=== PATIENT | male | born 1995 | race Caucasian/White ===

== ENCOUNTER 2020-12-14 23:02 | Inpatient (IN) ==
[2020-12-15] MEDS ORDERED: Naloxone 0.4 MG/ML INJ IVP PRN (01:35)
[2020-12-15] MEDS ORDERED: ALPRAZolam 0.5 MG TABLET PO PRN (01:48)
[2020-12-15 05:58] LABS: Basophils % 0.3 %; Hematocrit 47.6 % (37.5-50.1); Hemoglobin 15.8 g/dL (12.9-16.9); Immature Granulocytes % 0.8 % (0-4); Lymphocytes # 0.5 K/mcL (0.6-4.6); Lymphocytes % 6.5 %; Mean Corpuscular HGB Conc 33.2 g/dL (31.6-35.5); Mean Corpuscular Hemoglobin 28.9 pg (28.0-33.3); Mean Platelet Volume 9.5 fL (9.4-12.4); Monocytes # 0.4 K/mcL (0.0-1.3); Monocytes % 5.1 %; Neutrophils # 6.7 K/mcL (1.6-8.9); Platelet Count 271 K/mcL (140-400); Red Blood Count 5.47 M/mcL (4.19-5.50); Red Cell Distribution Width 12.2 % (11.5-14.5); Segmented Neutrophils % 87.3 %; White Blood Count 7.7 K/mcL (4.3-11.1)
[2020-12-15 06:11] LABS: INR 1.4; Prothrombin Time 16.5 Seconds (9.4-12.1)
[2020-12-15 06:15] LABS: D-Dimer 556 ng/mLFEU (0-500)
[2020-12-15 06:17] LABS: Alanine Aminotransferase 86 Units/L (7-52); Albumin 3.5 g/dL (3.5-5.7); Alkaline Phosphatase 48 Units/L (34-104); Aspartate Amino Transferase 89 Units/L (13-39); BUN/Creatinine Ratio 26 (6-26); Bilirubin,Indirect 0.4 mg/dL (0.0-1.0); Bilirubin,Total 0.4 mg/dL (0.3-1.0); Blood Urea Nitrogen 19 mg/dL (6-20); Calcium 8.5 mg/dL (8.6-10.3); Carbon Dioxide 23 mEq/L (23-29); Chloride 106 mEq/L (98-107); Globulin 3.5 g/dL (2.4-3.5); Glucose 137 mg/dL (70-105); Magnesium 2.2 mg/dL (1.6-2.6); Osmolality,Calculated 294 (280-300); Potassium 4.2 mEq/L (3.5-5.1); Sodium 140 mEq/L (136-145); eGFR For African Americans > 60 (> 60); eGFR For Non-African Americans > 60 (> 60)
[2020-12-15] MEDS: Azithromycin 500 MG in 0.9 % Sodium Chloride 250 ML IVPB SCH (07:54)
[2020-12-15] MEDS: cefTRIAXone 1,000 MG in Water for inj. (sterile) 10 ML IVP SCH (07:55)
[2020-12-15] MEDS: *HR* Enoxaparin 40 MG/0.4 ML SYRINGE SQ SCH (07:57)
[2020-12-15 08:22] LABS: Lactate Dehydrogenase 605 Units/L (140-271)
[2020-12-15 08:23] LABS: Fibrinogen 736 mg/dL (169-393)
[2020-12-15] MEDS: Dexamethasone Sodium Phos/PF 10 MG/ML VIAL IVP SCH (08:35)
[2020-12-15] MEDS ORDERED: 0.9 % Sodium Chloride 500 ML ONE (08:40)
[2020-12-15] MEDS ORDERED: Dexamethasone 4 MG/ML VIAL IVP SCH (09:00)
[2020-12-15] MEDS ORDERED: Furosemide 40 MG/4 ML VIAL IVP SCH (09:00)
[2020-12-15 09:15] LABS: Ferritin > 1500 ng/mL (20-250)
[2020-12-15] MEDS: Dexmedetomidine HCl 400 MCG/100 ML MLS IVC SCH ×3 (11:13→23:37)
[2020-12-15] MEDS: *HR* LORazepam 2 MG/ML VIAL IVP PRN (20:14)
[2020-12-15 21:38] LABS: Adenovirus Not Detected (Not Detect); Coronavirus 229E Not Detected (Not Detect); Coronavirus HKU1 Not Detected (Not Detect); Coronavirus NL63 Not Detected (Not Detect); Coronavirus OC43 Not Detected (Not Detect)
[2020-12-15 21:39] LABS: Bordetella Pertussis Not Detected (Not Detect); Chlamydophila pneumoniae Not Detected (Not Detect); Human Metapneumovirus Not Detected (Not Detect); Human Rhinovirus/Enterovirus Not Detected (Not Detect); Influenza A Subtype 2009 H1 Not Detected (Not Detect); Influenza B Not Detected (Not Detect); Mycoplasma pneumoniae Not Detected (Not Detect); Parainfluenza Virus 1 Not Detected (Not Detect); Parainfluenza Virus 2 Not Detected (Not Detect); Parainfluenza Virus 3 Not Detected (Not Detect); Parainfluenza Virus 4 Not Detected (Not Detect); Respiratory Syncytial Virus Not Detected (Not Detect); SARS-CoV-2 DETECTED (Not Detect)
[2020-12-16 03:36] LABS: Basophils % 0.2 %; Hematocrit 47.7 % (37.5-50.1); Hemoglobin 15.5 g/dL (12.9-16.9); Immature Granulocytes % 1.1 % (0-4); Lymphocytes # 0.6 K/mcL (0.6-4.6); Mean Corpuscular HGB Conc 32.5 g/dL (31.6-35.5); Mean Corpuscular Hemoglobin 29.1 pg (28.0-33.3); Mean Corpuscular Volume 89.7 fL (83.0-100.0); Mean Platelet Volume 9.8 fL (9.4-12.4); Monocytes # 0.4 K/mcL (0.0-1.3); Monocytes % 5.2 %; Neutrophils # 6.9 K/mcL (1.6-8.9); Platelet Count 377 K/mcL (140-400); Red Blood Count 5.32 M/mcL (4.19-5.50); Red Cell Distribution Width 12.6 % (11.5-14.5); Segmented Neutrophils % 85.5 %
[2020-12-16 03:38] LABS: VBG Ionized Calcium 1.06 mmol/L (1.15-1.35)
[2020-12-16 03:53] LABS: Alanine Aminotransferase 87 Units/L (7-52); Albumin 3.6 g/dL (3.5-5.7); Albumin/Globulin Ratio 0.9 (1.1-2.2); Alkaline Phosphatase 46 Units/L (34-104); BUN/Creatinine Ratio 35 (6-26); Bilirubin,Direct 0.1 mg/dL (0.0-0.2); Bilirubin,Indirect 0.2 mg/dL (0.0-1.0); Bilirubin,Total 0.3 mg/dL (0.3-1.0); Blood Urea Nitrogen 36 mg/dL (6-20); Carbon Dioxide 24 mEq/L (23-29); Chloride 103 mEq/L (98-107); Glucose 198 mg/dL (70-105); Osmolality,Calculated 302 (280-300); Phosphorous 4.8 mg/dL (2.7-4.5); Potassium 4.3 mEq/L (3.5-5.1); Sodium 139 mEq/L (136-145); Total Protein 7.6 g/dL (6.4-8.9); eGFR For African Americans > 60 (> 60); eGFR For Non-African Americans > 60 (> 60)
[2020-12-16 03:55] LABS: Aspartate Amino Transferase 38 Units/L (13-39)
[2020-12-16] MEDS: Dexmedetomidine HCl 400 MCG/100 ML MLS IVC SCH ×3 (04:32→23:19)
[2020-12-16] MEDS ORDERED: Calcium Gluconate 1gm/50mL 1 GM/50 ML BAG IVPB ONE (05:24)
[2020-12-16 06:36] LABS: ABG Base Excess 1 mEq/L (-2 to 3); ABG HCO3 26 mEq/L (21-27); ABG Oxygen Saturation 96 % (95-98); ABG PCO2 42 mmHg (35-45); ABG PO2 80 mmHg (85-104); ABG TCO2 27 mEq/L (20-26); Blood Gas Modality ST
[2020-12-16] MEDS: Dexamethasone Sodium Phos/PF 10 MG/ML VIAL IVP SCH (08:00)
[2020-12-16] MEDS: cefTRIAXone 1,000 MG in Water for inj. (sterile) 10 ML IVP SCH (08:00)
[2020-12-16] MEDS: Azithromycin 500 MG in 0.9 % Sodium Chloride 250 ML IVPB SCH (08:01)
[2020-12-16] MEDS: *HR* LORazepam 2 MG/ML VIAL IVP PRN ×3 (08:04→23:20)
[2020-12-16] MEDS: *HR* Enoxaparin 40 MG/0.4 ML SYRINGE SQ SCH (08:04)
[2020-12-16] MEDS: Pantoprazole 40 MG VIAL IVP SCH (10:47)
[2020-12-16] MEDS ORDERED: *HR* Dextrose 50 % in Water (Vial) 50 ML VIAL IVP PRN (11:56)
[2020-12-16] MEDS ORDERED: Dextrose Gel 15 GM/37.5 ML TUBE PO PRN ×2 (11:56)
[2020-12-16] MEDS ORDERED: D5% in Water 1,000 ML IVC PRN (11:56)
[2020-12-16] MEDS: Insulin LISPRO 300 UNITS/3 ML VIAL SUBQ SCH ×3 (17:03→23:20)
[2020-12-17 05:11] LABS: VBG Ionized Calcium 1.13 mmol/L (1.15-1.35)
[2020-12-17 05:16] LABS: Basophils % 0.3 %; Hematocrit 47.9 % (37.5-50.1); Hemoglobin 15.5 g/dL (12.9-16.9); Immature Granulocytes % 0.8 % (0-4); Lymphocytes # 0.7 K/mcL (0.6-4.6); Lymphocytes % 8.4 %; Mean Corpuscular HGB Conc 32.4 g/dL (31.6-35.5); Mean Corpuscular Hemoglobin 29.5 pg (28.0-33.3); Mean Corpuscular Volume 91.1 fL (83.0-100.0); Mean Platelet Volume 9.7 fL (9.4-12.4); Monocytes # 0.5 K/mcL (0.0-1.3); Monocytes % 6.1 %; Neutrophils # 7.4 K/mcL (1.6-8.9); Platelet Count 424 K/mcL (140-400); Red Blood Count 5.26 M/mcL (4.19-5.50); Red Cell Distribution Width 12.7 % (11.5-14.5); Segmented Neutrophils % 84.4 %; White Blood Count 8.7 K/mcL (4.3-11.1)
[2020-12-17 05:30] LABS: BUN/Creatinine Ratio 49 (6-26); Blood Urea Nitrogen 38 mg/dL (6-20); Calcium 9.1 mg/dL (8.6-10.3); Carbon Dioxide 23 mEq/L (23-29); Chloride 108 mEq/L (98-107); Glucose 156 mg/dL (70-105); Magnesium 2.5 mg/dL (1.6-2.6); Osmolality,Calculated 304 (280-300); Potassium 4.6 mEq/L (3.5-5.1); Sodium 141 mEq/L (136-145); eGFR For African Americans > 60 (> 60); eGFR For Non-African Americans > 60 (> 60)
[2020-12-17 05:31] LABS: Alanine Aminotransferase 78 Units/L (7-52); Albumin 3.4 g/dL (3.5-5.7); Albumin/Globulin Ratio 0.9 (1.1-2.2); Alkaline Phosphatase 42 Units/L (34-104); Aspartate Amino Transferase 25 Units/L (13-39); BUN/Creatinine Ratio 51 (6-26); Bilirubin,Direct 0.2 mg/dL (0.0-0.2); Bilirubin,Indirect 0.2 mg/dL (0.0-1.0); Bilirubin,Total 0.4 mg/dL (0.3-1.0); Blood Urea Nitrogen 40 mg/dL (6-20); Carbon Dioxide 24 mEq/L (23-29); Chloride 108 mEq/L (98-107); Globulin 3.7 g/dL (2.4-3.5); Glucose 158 mg/dL (70-105); Osmolality,Calculated 305 (280-300); Potassium 4.5 mEq/L (3.5-5.1); Sodium 141 mEq/L (136-145); Total Protein 7.1 g/dL (6.4-8.9); eGFR For African Americans > 60 (> 60); eGFR For Non-African Americans > 60 (> 60)
[2020-12-17] MEDS: Insulin LISPRO 300 UNITS/3 ML VIAL SUBQ SCH ×6 (05:31→23:45)
[2020-12-17] MEDS ORDERED: Furosemide 40 MG/4 ML VIAL IVP ONE ×2 (07:16→15:28)
[2020-12-17] MEDS: cefTRIAXone 1,000 MG in Water for inj. (sterile) 10 ML IVP SCH (08:21)
[2020-12-17] MEDS: Pantoprazole 40 MG VIAL IVP SCH (08:22)
[2020-12-17] MEDS: *HR* LORazepam 2 MG/ML VIAL IVP PRN (08:22)
[2020-12-17] MEDS: Dexamethasone Sodium Phos/PF 10 MG/ML VIAL IVP SCH (08:22)
[2020-12-17] MEDS: Azithromycin 500 MG in 0.9 % Sodium Chloride 250 ML IVPB SCH (08:23)
[2020-12-17] MEDS: *HR* Enoxaparin 40 MG/0.4 ML SYRINGE SQ SCH (08:23)
[2020-12-17] MEDS ORDERED: D10% in Water 500 ML IVC PRN (10:48)
[2020-12-17] MEDS: Cholecalciferol (D-3) 1,000 UNIT (25MCG) TABLET PO SCH (11:09)
[2020-12-17] MEDS: Zinc Sulfate 220 MG CAPSULE PO SCH (11:09)
[2020-12-17] MEDS ORDERED: Lidocaine -MPF 1% 5 ML AMPUL INFILT ONE (12:38)
[2020-12-17] MEDS ORDERED: Ipratropium 1 PUFF INHALER IH PRN (15:26)
[2020-12-17] MEDS: Dexmedetomidine HCl 400 MCG/100 ML MLS IVC SCH (15:40)
[2020-12-17] MEDS ORDERED: Clinimix E 5%-15% SOLUTION 2,000 ML with MVI, adult with vitamin K 10 ML IVC SCH (17:00)
[2020-12-17] MEDS: Ipratropium 1 PUFF INHALER IH SCH (19:17)
[2020-12-18] MEDS: Ipratropium 1 PUFF INHALER IH SCH ×7 (00:31→23:11)
[2020-12-18 04:01] LABS: Hematocrit 48.5 % (37.5-50.1); Hemoglobin 15.5 g/dL (12.9-16.9); Mean Corpuscular Hemoglobin 28.8 pg (28.0-33.3); Mean Platelet Volume 9.6 fL (9.4-12.4); Platelet Count 454 K/mcL (140-400); Red Blood Count 5.39 M/mcL (4.19-5.50); Red Cell Distribution Width 12.3 % (11.5-14.5); White Blood Count 9.7 K/mcL (4.3-11.1)
[2020-12-18 04:04] LABS: VBG Ionized Calcium 1.13 mmol/L (1.15-1.35)
[2020-12-18 04:23] LABS: Magnesium 2.5 mg/dL (1.6-2.6)
[2020-12-18 04:24] LABS: Alanine Aminotransferase 100 Units/L (7-52); Albumin 3.5 g/dL (3.5-5.7); Alkaline Phosphatase 41 Units/L (34-104); Aspartate Amino Transferase 27 Units/L (13-39); BUN/Creatinine Ratio 56 (6-26); Bilirubin,Direct 0.1 mg/dL (0.0-0.2); Bilirubin,Indirect 0.4 mg/dL (0.0-1.0); Bilirubin,Total 0.5 mg/dL (0.3-1.0); Blood Urea Nitrogen 42 mg/dL (6-20); Calcium 9.2 mg/dL (8.6-10.3); Carbon Dioxide 28 mEq/L (23-29); Chloride 106 mEq/L (98-107); Globulin 3.6 g/dL (2.4-3.5); Glucose 136 mg/dL (70-105); Osmolality,Calculated 307 (280-300); Phosphorous 3.9 mg/dL (2.7-4.5); Potassium 4.3 mEq/L (3.5-5.1); Sodium 142 mEq/L (136-145); Total Protein 7.1 g/dL (6.4-8.9); eGFR For African Americans > 60 (> 60); eGFR For Non-African Americans > 60 (> 60)
[2020-12-18] MEDS: Insulin LISPRO 300 UNITS/3 ML VIAL SUBQ SCH ×5 (04:28→20:13)
[2020-12-18] MEDS: Azithromycin 500 MG in 0.9 % Sodium Chloride 250 ML IVPB SCH (08:51)
[2020-12-18] MEDS: cefTRIAXone 1,000 MG in Water for inj. (sterile) 10 ML IVP SCH (08:52)
[2020-12-18] MEDS: Pantoprazole 40 MG VIAL IVP SCH (08:52)
[2020-12-18] MEDS: *HR* Enoxaparin 40 MG/0.4 ML SYRINGE SQ SCH (08:52)
[2020-12-18] MEDS: Cholecalciferol (D-3) 1,000 UNIT (25MCG) TABLET PO SCH (08:53)
[2020-12-18] MEDS: Dexamethasone Sodium Phos/PF 10 MG/ML VIAL IVP SCH (08:53)
[2020-12-18] MEDS: Zinc Sulfate 220 MG CAPSULE PO SCH (08:53)
[2020-12-18] MEDS ORDERED: Furosemide 40 MG/4 ML VIAL IVP ONE (09:54)
[2020-12-18] MEDS: *HR* LORazepam 2 MG/ML VIAL IVP PRN (16:13)
[2020-12-18] MEDS ORDERED: Clinimix E 5%-20% SOLUTION 2,000 ML with MVI, adult with vitamin K 10 ML IVC SCH (17:00)
[2020-12-19] MEDS: Insulin LISPRO 300 UNITS/3 ML VIAL SUBQ SCH ×6 (00:06→22:20)
[2020-12-19] MEDS: Ipratropium 1 PUFF INHALER IH SCH ×6 (03:48→23:08)
[2020-12-19 03:59] LABS: VBG Ionized Calcium 1.15 mmol/L (1.15-1.35)
[2020-12-19 04:21] LABS: Alanine Aminotransferase 87 Units/L (7-52); Albumin 3.3 g/dL (3.5-5.7); Albumin/Globulin Ratio 0.9 (1.1-2.2); Alkaline Phosphatase 39 Units/L (34-104); Aspartate Amino Transferase 18 Units/L (13-39); BUN/Creatinine Ratio 46 (6-26); Bilirubin,Direct 0.1 mg/dL (0.0-0.2); Bilirubin,Indirect 0.4 mg/dL (0.0-1.0); Bilirubin,Total 0.5 mg/dL (0.3-1.0); Blood Urea Nitrogen 33 mg/dL (6-20); Calcium 8.8 mg/dL (8.6-10.3); Carbon Dioxide 29 mEq/L (23-29); Chloride 104 mEq/L (98-107); Globulin 3.6 g/dL (2.4-3.5); Glucose 160 mg/dL (70-105); Osmolality,Calculated 301 (280-300); Phosphorous 3.4 mg/dL (2.7-4.5); Potassium 4.1 mEq/L (3.5-5.1); Sodium 140 mEq/L (136-145); Total Protein 6.9 g/dL (6.4-8.9); eGFR For African Americans > 60 (> 60); eGFR For Non-African Americans > 60 (> 60)
[2020-12-19] MEDS: cefTRIAXone 1,000 MG in Water for inj. (sterile) 10 ML IVP SCH (08:50)
[2020-12-19] MEDS: Azithromycin 500 MG in 0.9 % Sodium Chloride 250 ML IVPB SCH (08:57)
[2020-12-19] MEDS: Pantoprazole 40 MG VIAL IVP SCH (08:57)
[2020-12-19] MEDS: *HR* Enoxaparin 40 MG/0.4 ML SYRINGE SQ SCH (08:58)
[2020-12-19] MEDS: Dexamethasone Sodium Phos/PF 10 MG/ML VIAL IVP SCH (08:58)
[2020-12-19] MEDS: Cholecalciferol (D-3) 1,000 UNIT (25MCG) TABLET PO SCH (08:58)
[2020-12-19] MEDS: Zinc Sulfate 220 MG CAPSULE PO SCH (09:02)
[2020-12-19] MEDS ORDERED: Furosemide 40 MG/4 ML VIAL IVP ONE (14:30)
[2020-12-19] MEDS ORDERED: Clinimix E 5%-20% SOLUTION 2,000 ML with MVI, adult with vitamin K 10 ML IVC SCH ×2 (17:00→17:16)
[2020-12-19] MEDS ORDERED: Ipratropium 1 PUFF INHALER IH PRN (17:16)
[2020-12-19] MEDS ORDERED: *HR* Dextrose 50 % in Water (Vial) 50 ML VIAL IVP PRN (17:16)
[2020-12-19] MEDS ORDERED: Dextrose Gel 15 GM/37.5 ML TUBE PO PRN ×2 (17:16)
[2020-12-19] MEDS ORDERED: Naloxone 0.4 MG/ML INJ IVP PRN (17:16)
[2020-12-19] MEDS ORDERED: D10% in Water 500 ML IVC PRN (17:16)
[2020-12-19] MEDS ORDERED: D5% in Water 1,000 ML IVC PRN (17:16)
[2020-12-19] MEDS ORDERED: *HR* LORazepam 2 MG/ML VIAL IVP PRN (17:16)
[2020-12-20] MEDS: Insulin LISPRO 300 UNITS/3 ML VIAL SUBQ SCH (01:14)
[2020-12-20] MEDS: Ipratropium 1 PUFF INHALER IH SCH ×5 (03:56→20:13)
[2020-12-20 06:00] LABS: VBG Ionized Calcium 1.19 mmol/L (1.15-1.35)
[2020-12-20] MEDS ORDERED: Pantoprazole 40 MG VIAL IVP SCH (09:00)
[2020-12-20] MEDS ORDERED: Dexamethasone Sodium Phos/PF 10 MG/ML VIAL IVP SCH (09:00)
[2020-12-20] MEDS: Cholecalciferol (D-3) 1,000 UNIT (25MCG) TABLET PO SCH (11:09)
[2020-12-20] MEDS: Zinc Sulfate 220 MG CAPSULE PO SCH (11:10)
[2020-12-20] MEDS: *HR* Enoxaparin 40 MG/0.4 ML SYRINGE SQ SCH (11:10)
[2020-12-20] MEDS: cefTRIAXone 1,000 MG in Water for inj. (sterile) 10 ML IVP SCH (11:11)
[2020-12-20 11:39] LABS: VBG Ionized Calcium 1.15 mmol/L (1.15-1.35)
[2020-12-20 12:10] LABS: Alanine Aminotransferase 127 Units/L (7-52); Albumin 3.4 g/dL (3.5-5.7); Alkaline Phosphatase 44 Units/L (34-104); Aspartate Amino Transferase 29 Units/L (13-39); BUN/Creatinine Ratio 42 (6-26); Bilirubin,Direct 0.1 mg/dL (0.0-0.2); Bilirubin,Indirect 0.4 mg/dL (0.0-1.0); Bilirubin,Total 0.5 mg/dL (0.3-1.0); Blood Urea Nitrogen 23 mg/dL (6-20); Calcium 9.1 mg/dL (8.6-10.3); Carbon Dioxide 27 mEq/L (23-29); Chloride 102 mEq/L (98-107); Globulin 3.5 g/dL (2.4-3.5); Glucose 145 mg/dL (70-105); Magnesium 1.9 mg/dL (1.6-2.6); Osmolality,Calculated 288 (280-300); Phosphorous 2.5 mg/dL (2.7-4.5); Potassium 3.5 mEq/L (3.5-5.1); Sodium 136 mEq/L (136-145); Total Protein 6.9 g/dL (6.4-8.9); eGFR For African Americans > 60 (> 60); eGFR For Non-African Americans > 60 (> 60)
[2020-12-20] MEDS ORDERED: Ondansetron 4 MG/2 ML VIAL IVP PRN (13:08)
[2020-12-21] MEDS: Ipratropium 1 PUFF INHALER IH SCH ×6 (00:08→20:15)
[2020-12-21 06:56] LABS: VBG Ionized Calcium 1.16 mmol/L (1.15-1.35)
[2020-12-21] MEDS: cefTRIAXone 1,000 MG in Water for inj. (sterile) 10 ML IVP SCH (08:44)
[2020-12-21] MEDS: Dexamethasone Sodium Phos/PF 10 MG/ML VIAL PO SCH (08:44)
[2020-12-21] MEDS: *HR* Enoxaparin 40 MG/0.4 ML SYRINGE SQ SCH (08:45)
[2020-12-21] MEDS: Cholecalciferol (D-3) 1,000 UNIT (25MCG) TABLET PO SCH (08:45)
[2020-12-21] MEDS: Zinc Sulfate 220 MG CAPSULE PO SCH (08:50)
[2020-12-21 13:04] LABS: Alanine Aminotransferase 389 Units/L (7-52); Albumin 3.6 g/dL (3.5-5.7); Alkaline Phosphatase 56 Units/L (34-104); Aspartate Amino Transferase 62 Units/L (13-39); BUN/Creatinine Ratio 41 (6-26); Bilirubin,Indirect 0.6 mg/dL (0.0-1.0); Bilirubin,Total 0.6 mg/dL (0.3-1.0); Blood Urea Nitrogen 34 mg/dL (6-20); Calcium 9.3 mg/dL (8.6-10.3); Carbon Dioxide 25 mEq/L (23-29); Chloride 101 mEq/L (98-107); Globulin 3.6 g/dL (2.4-3.5); Glucose 86 mg/dL (70-105); Osmolality,Calculated 289 (280-300); Phosphorous 4.5 mg/dL (2.7-4.5); Potassium 4.7 mEq/L (3.5-5.1); Sodium 136 mEq/L (136-145); Total Protein 7.2 g/dL (6.4-8.9); eGFR For African Americans > 60 (> 60); eGFR For Non-African Americans > 60 (> 60)
[2020-12-22] MEDS: Ipratropium 1 PUFF INHALER IH SCH ×7 (00:21→23:18)
[2020-12-22 02:32] LABS: Alanine Aminotransferase 308 Units/L (7-52); Albumin 3.2 g/dL (3.5-5.7); Alkaline Phosphatase 50 Units/L (34-104); Aspartate Amino Transferase 36 Units/L (13-39); BUN/Creatinine Ratio 40 (6-26); Bilirubin,Total 0.5 mg/dL (0.3-1.0); Blood Urea Nitrogen 31 mg/dL (6-20); Calcium 8.9 mg/dL (8.6-10.3); Carbon Dioxide 26 mEq/L (23-29); Chloride 103 mEq/L (98-107); Globulin 3.3 g/dL (2.4-3.5); Glucose 134 mg/dL (70-105); Osmolality,Calculated 287 (280-300); Potassium 4.5 mEq/L (3.5-5.1); Sodium 134 mEq/L (136-145); Total Protein 6.5 g/dL (6.4-8.9); eGFR For African Americans > 60 (> 60); eGFR For Non-African Americans > 60 (> 60)
[2020-12-22] MEDS: Cholecalciferol (D-3) 1,000 UNIT (25MCG) TABLET PO SCH (09:08)
[2020-12-22] MEDS: *HR* Enoxaparin 40 MG/0.4 ML SYRINGE SQ SCH (09:08)
[2020-12-22] MEDS: Dexamethasone Sodium Phos/PF 10 MG/ML VIAL PO SCH (09:08)
[2020-12-22] MEDS: Zinc Sulfate 220 MG CAPSULE PO SCH (09:08)
[2020-12-23] MEDS: Ipratropium 1 PUFF INHALER IH SCH ×4 (04:07→16:04)
[2020-12-23] MEDS: Dexamethasone Sodium Phos/PF 10 MG/ML VIAL PO SCH (07:58)
[2020-12-23] MEDS: Zinc Sulfate 220 MG CAPSULE PO SCH (07:58)
[2020-12-23] MEDS: Cholecalciferol (D-3) 1,000 UNIT (25MCG) TABLET PO SCH (07:58)
[2020-12-23] MEDS: *HR* Enoxaparin 40 MG/0.4 ML SYRINGE SQ SCH (07:58)
[2020-12-23 08:04] VITALS: BP 121/85
== END 2020-12-23 16:23 | disposition home or self-care (01) | DRG 177 ==
LOC: ICNU → OBSVTOIN 12-15 00:54 → SUATTDRO 12-15 00:54 → 2NENU 12-19 19:14
PROVIDERS: ADMIT Student in an Organized Health Care Education/Training Program; ATTEND Internal Medicine